=== PATIENT | male | born 1990 | race African-American/Black ===

== ENCOUNTER 2022-11-02 22:10 | Emergency (ER) | payer MEDICAID ==
[~2022-11-02] VITALS: Ht 193 cm; Wt 120.0 kg
[2022-11-02 22:15] VITALS: O2SAT 99
[2022-11-02 23:06] LABS: BASOPHILS % 0.4 % (0.0-2.0); DIFFERENTIAL COMMENT 0; EOSINOPHILS % 0.4 % (0.0-5.0); HEMATOCRIT. 43.9 % (42.0-52.0); HEMOGLOBIN. 14.4 g/dL (14.0-18.0); LYMPHOCYTES % 34.3 % (20.0-50.0); MEAN CORPUSCULAR HEMOGLOBIN 26.1 pg (28.0-32.0); MEAN CORPUSCULAR HGB CONC 32.8 g/dL (31.0-37.0); MEAN CORPUSCULAR VOLUME 79.5 fL (80.0-94.0); MEAN PLATELET VOLUME 9.1 fl (7.4-10.4); NEUTROPHILS % 52.9 % (40.0-76.0); PLATELET 164 x1000/uL (130-400); RED BLOOD CELL COUNT 5.51 mill/uL (4.7-6.1); RED CELL DISTRIBUTION WIDTH 13.5 % (11.6-14.6); WHITE BLOOD COUNT 7.2 x1000/uL (4.5-11.0)
[2022-11-02 23:12] LABS: CHLORIDE 108 mEq/L (98-107); INDEX HEMOLYSI 1 (1-3); INDEX ICTERIC 1 (1-4); INDEX LIPEMIC 1 (1-3); POTASSIUM 4.2 mEq/L (3.5-5.1); SODIUM 138 mEq/L (136-145)
[2022-11-02 23:20] LABS: ALANINE AMINOTRANSFERASE 57 IU/L (13-61); ALBUMIN 4.3 g/dL (3.4-5.0); ASPARTATE AMINOTRANSFERASE 33 IU/L (15-37); BILIRUBIN TOTAL 0.7 mg/dL (0.1-1.0); CALCIUM 8.8 mg/dL (8.5-10.1); CARBON DIOXIDE 27 mEq/L (21-32); CREATININE 1.4 mg/dL (0.6-1.3); GLUCOSE 101 mg/dL (70-105); PROTEIN TOTAL 8.4 g/dL (6.0-8.3); TROPONIN I HIGH SENSITIVITY 8 ng/L (<78); UREA NITROGEN BLOOD 14 mg/dL (7-21)
[2022-11-03 05:50] VITALS: BP 137/89; PULSE 81; RESP 20; TEMP 98.1
== END 2022-11-03 05:55 | disposition home or self-care (01) ==
LOC: ER 22:37
DX: R55 Syncope and collapse (principal)
CPT/HCPCS: 80053; 85025; 84484; 36415; 71045; 93005; 99285; Z7610

== ENCOUNTER 2025-02-18 11:34 | Emergency (ER) | payer MEDICAID ==
[~2025-02-18] VITALS: Ht 182.9 cm; Wt 118.0 kg
[2025-02-18 11:43] VITALS: O2SAT 98
[2025-02-18] MEDS ORDERED: IBUP-1455 MT (13:06)
[2025-02-18 13:18] VITALS: BP 142/91; PULSE 71; RESP 16; TEMP 36.9; O2SAT 98
== END 2025-02-18 13:22 | disposition home or self-care (01) ==
LOC: ER 11:34
DX: S86.002A Unspecified injury of left Achilles tendon, initial encounter (principal); X58.XXXA Exposure to other specified factors, initial encounter; Y93.02 Activity, running; Y92.89 Other specified places as the place of occurrence of the external cause; Y99.8 Other external cause status
CPT/HCPCS: 99283; 73610; A6449